=== PATIENT | female | born 1985 | race Caucasian/White ===

== ENCOUNTER 2017-04-12 23:58 | Emergency (ER) | payer BC ==
[2017-04-13] MEDS ORDERED: methylPREDNISolone Sodium Succinate 125 MG/2 ML SDV IM ONE (00:15)
[2017-04-13] MEDS ORDERED: Ranitidine 15 MG/ML Syrup 10 ML UD Cup PO STA (00:27)
--- NOTE | 2017-04-13 00:40 | EDM.PDOC ---
ED HPI GENERAL MEDICAL PROBLEM - General Chief Complaint: Allergic Reaction Stated Complaint: POSSIBLE ALLERGIC REACTION Time Seen by Provider: 04/13/17 00:36 Source of Information: Reports: Patient - History of Present Illness INITIAL COMMENTS - FREE TEXT/NARRATIVE: HISTORY AND PHYSICAL: History of present illness: [Patient presents with urticarial rash that began at 5 PM while she was at her nephew's birthday [employer], she states her no new things that she is exposed to, she is been in her nephew's home many times without any problem she did eat a few snacks at the birthday [employer] but nothing new or outstanding she did have some peanuts although she is eating peanuts her whole life without reaction no new soaps laundry detergents or perfumes. She did take Benadryl with some improvement that is worn off she has had improvement with calamine lotion but is unable to sleep due to itching she took 25 mg of Benadryl at 6 PM presents around midnight No lip swelling tongue swelling or oral pharyngeal edema or stridor at any time no fever nausea vomiting chills sweats urticarial rash that waxes and wanes along with itching ] Review of systems: As per history of present illness and below otherwise all systems reviewed and negative. Past medical history: As per history of present illness and as reviewed below otherwise noncontributory. Surgical history: As per history of present illness and as reviewed below otherwise noncontributory. Social history: No reported history of drug or alcohol abuse. Family history: As per history of present illness and as reviewed below otherwise noncontributory. Physical exam: HEENT: Atraumatic, normocephalic, pupils reactive, negative for conjunctival pallor or scleral icterus, mucous membranes moist, throat clear, neck supple, nontender, trachea midline. No lip swelling tongue swelling or oral pharyngeal edema Lungs: Clear to auscultation, breath sounds equal bilaterally, chest nontender. Heart: S1S2, regular, negative for clicks, rubs, or JVD. Abdomen: Soft, nondistended, nontender. Negative for masses or hepatosplenomegaly. Negative for costovertebral tenderness. Pelvis: Stable nontender. Genitourinary: Deferred. Rectal: Deferred. Extremities: Atraumatic, negative for cords or calf pain. Neurovascular unremarkable. Neuro: Awake, alert, oriented. Cranial nerves II through XII unremarkable. Cerebellum unremarkable. Motor and sensory unremarkable throughout. Exam nonfocal. Urticarial rash on trunk and arms and anterior thighs, patient described similar symptoms that were on her buttocks back and forearms which have resolved Diagnostics: [Clinical] Therapeutics: [Zantac 150 milligrams by mouth now Benadryl 50 mg every 4-6 hours when necessary Solu-Medrol 125 mg IM Medrol Dosepak EpiPen prescription provided ] Consider allergy testing Impression: [Urticarial rash] Definitive disposition and diagnosis as appropriate pending reevaluation and review of above. - Related Data Allergies Allergy/AdvReac Type Severity Reaction Status Date / Time No Known Allergies Allergy Verified 04/13/17 00:08 Home Meds: Home Meds . [No Known Home Meds] 06/07/16 [History] Past Medical History - Past Health History Medical/Surgical History: Denies Medical/Surgical History HEENT History: Reports: None, Other (See Below) Other HEENT History: wears glasses/contacts Genitourinary History: Reports: Renal Calculus - Past Surgical History Head Surgeries/Procedures: Reports: None HEENT Surgical History: Reports: Oral Surgery Female Surgical History: Reports: Kidney stone extraction Social & Family History - Family History Family Medical History: Noncontributory - Tobacco Use Smoking Status *Q: Never Smoker Month Tobacco Last Used: quit smoking 1 1/2 yrs ago Second Hand Smoke Exposure: No - Caffeine Use Caffeine Use: Reports: None - Recreational Drug Use Recreational Drug Use: No ED ROS ALLERGIC REACTION - Review of Systems Review Of Systems: ROS reveals no pertinent complaints other than HPI. ED EXAM GENERAL NO PERIP PULSE - Physical Exam Exam: See Below Course - Vital Signs Last Recorded V/S: Last Vital Signs Temp 36.9 C 04/13/17 00:04 Pulse 89 04/13/17 00:04 Resp 17 04/13/17 00:04 BP 135/93 H 04/13/17 00:04 Pulse Ox 97 04/13/17 00:04 - Orders/Labs/Meds Meds: Medications Discontinued Medications Generic Name Dose Route Start Last Admin Trade Name Tevinq PRN Reason Stop Dose Admin Methylprednisolone Sodium Succinate 125 mg 04/13/17 00:15 04/13/17 00:33 Solu-Medrol IM 04/13/17 00:16 125 mg ONETIME ONE Administration Ranitidine HCl 150 mg 04/13/17:27 04/13/17 00:35 Zantac PO 04/13/17 00:28 150 mg NOW STA Administration Departure - Departure Time of Disposition: 00:39 Disposition: Home, Self-Care 01 Condition: Good Clinical Impression: Urticarial rash - Discharge Information Referrals: PCP,None [Primary Care Provider] - Additional Instructions: Benadryl 50 mg IM mouth every 4-6 hours as needed Zantac 150 milligrams 2 times daily by mouth may benefit Medrol Dosepak as directed EpiPen prescription is provided to use as directed Consider allergy testing with your primary care provider Follow-up with primary care in 2 weeks sooner as needed The following information is given to patients seen in the emergency department who are being discharged to home. This information is to outline your options for follow-up care. We provide all patients seen in our emergency department with a follow-up referral. The need for follow-up, as well as the timing and circumstances, are variable depending upon the specifics of your emergency department visit. If you don't have a primary care physician on staff, we will provide you with a referral. We always advise you to contact your personal physician following an emergency department visit to inform them of the circumstance of the visit and for follow-up with them and/or the need for any referrals to a consulting specialist. The emergency department will also refer you to a specialist when appropriate. This referral assures that you have the opportunity for follow-up care with a specialist. All of these measure are taken in an effort to provide you with optimal care, which includes your follow-up. Under all circumstances we always encourage you to contact your private physician who remains a resource for coordinating your care. When calling for follow-up care, please make the office aware that this follow-up is from your recent emergency room visit. If for any reason you are refused follow-up, please contact the [facility] emergency department at and asked to speak to the emergency department charge nurse.
[2017-04-13 01:40] VITALS: BP 127/83
== END 2017-04-13 01:00 | disposition home or self-care (01) ==
LOC: MW.ED 23:58
DX: L50.9 Urticaria, unspecified (principal)
CPT/HCPCS: 96372; 99282; A9270; J2930